=== PATIENT | female | born 1975 | race Caucasian/White ===

== ENCOUNTER 2023-11-26 10:02 | Outpatient (CLI) | payer BC ==
[2023-11-26] MEDS ORDERED: Iopamidol 370 76% 100 ML VIAL ONE (12:41)
== END 2023-11-26 10:03 | disposition home or self-care (01) ==
LOC: CT 10:02
PROVIDERS: ATTEND Family Medicine
DX: R10.30 Lower abdominal pain, unspecified (principal); K62.5 Hemorrhage of anus and rectum; R19.7 Diarrhea, unspecified
CPT/HCPCS: 74178; Q9967